=== PATIENT | female | born 1990 | race Hispanic/Latino ===

== ENCOUNTER 2019-08-08 14:57 | Outpatient (CLI) | payer OTHER ==
--- NOTE | 2019-08-08 16:25 | ULT ---
OB ULTRASOUND: 08/08/19 HISTORY: anatomy. FINDINGS: Single live intrauterine gestational seen with measurements corresponding to an estimated gestational age of 20 weeks, 4 days and SANDRINE at 12/22/19. The estimated weight measures 391 grams or 14 oz (36% by Hadlock criteria). measurements are as follows: BPD 4.36 cm 19 weeks, 2 days HC 17.37 cm 20 weeks, 0 days AC 16.25 cm 21 weeks, 3 days FL 3.50 cm 21 weeks, 1 day heart rate measures 138 beats per minute. Placenta is posteriorly located without evidence of placenta previa. HAYLEY measures 16.3 cm. Cervical length measures 3.5 cm. Three vessel cord, cord insertion, kidneys, bladder, spine, four chamber heart, lateral ventric les, cerebellum, spine, lips/nose, upper and lower extremities are visualized. No definite anom alies are seen. IMPRESSION: Single live IUP of 20 weeks, 4 days estimated gestational age and SANDRINE at 12/22/19. POS: RUBIN
== END 2019-08-08 14:58 | disposition home or self-care (01) ==
LOC: BICULT 14:57
PROVIDERS: ATTEND Family Medicine
DX: Z34.82 Encounter for supervision of other normal pregnancy, second trimester (principal); Z3A.20 20 weeks gestation of pregnancy
CPT/HCPCS: 76805

== ENCOUNTER 2019-12-07 08:04 | Outpatient (CLI) | payer OTHER ==
[2019-12-07 18:57] LABS: SARS-CoV-2 MS2 Positive; SARS-CoV-2 N Gene Negative; SARS-CoV-2 S Gene Negative; SARS-CoV-2 by NAA Not Detected (NotDetected); SARS-CoV-2 orf1ab Negative
== END 2019-12-07 08:05 | disposition home or self-care (01) ==
LOC: LABBT 08:04
PROVIDERS: ATTEND Family Medicine
DX: Z20.828 Contact with and (suspected) exposure to other viral communicable diseases (principal)
CPT/HCPCS: 87635; U0003

== ENCOUNTER 2019-12-10 18:00 | Inpatient (IN) | payer MEDICAID, OTHER, SELFPAY ==
[~2019-12-10 18:00] MED LIST: Bupivacaine/Epinephrine 0.25% 30 ML VIAL ONE
[2019-12-10] MEDS ORDERED: Carboprost 250 MCG/ML AMP IM PRN (20:30)
[2019-12-10] MEDS ORDERED: Promethazine HCl 25 MG/ML VIAL IM PRN (20:30)
[2019-12-10] MEDS ORDERED: Methylergonovine 0.2 MG/ML VIAL IM PRN (20:30)
[2019-12-10] MEDS ORDERED: NS / Oxytocin 40 units/1000ml 1,000 ML IV PRN (20:30)
[2019-12-10] MEDS ORDERED: Diphenoxylate HCl/Atropine Tablet PO PRN (20:30)
[2019-12-10] MEDS ORDERED: HYDROcodone/Acetaminophen 5/325 mg Tablet PO PRN (20:30)
[2019-12-10] MEDS ORDERED: Ondansetron PF 4 MG/2 ML Vial IVP PRN (20:30)
[2019-12-10] MEDS ORDERED: Misoprostol 200 MCG TAB PR PRN (20:30)
[2019-12-10] MEDS ORDERED: Butorphanol Tartrate 1 MG/ML VIAL SLOW IVP PRN (20:30)
[2019-12-10] MEDS ORDERED: Ibuprofen 800 MG TAB PO PRN (20:30)
[2019-12-10] MEDS ORDERED: hydrALAZINE 20 MG/ML VIAL SLOW IVP PRN (20:30)
[2019-12-10] MEDS ORDERED: NS w/ Oxytocin 10 units 500 ML IV SCH ×2 (20:30)
[2019-12-10] MEDS ORDERED: Lidocaine 1% (PF) 30 ML VIAL SC PRN (20:30)
[2019-12-10 20:49] VITALS: BMI 30.2
[2019-12-10] MEDS: Lactated Ringer's 1,000 ML IV SCH (21:43)
[2019-12-10 21:50] LABS: Hemoglobin 12.2 g/dL (12.0-16.0); Mean Corpuscular HGB CONC 33.6 g/dL (32.0-36.0); Mean Corpuscular Volume 92.1 fL (78.0-98.0); Mean Platelet Volume 10.4 fL (7.4-10.4); Platelet Count 225 thou/uL (130-400); RBC Distribution Width 12.7 % (11.5-14.5); Red Blood Cell (RBC) Count 3.93 mill/uL (4.20-5.40); White Blood Cell (WBC) Count 8.6 thou/uL (4.8-10.8)
[2019-12-10] MEDS: Misoprostol 100 MCG TAB PO SCH (21:50)
[2019-12-10 22:26] LABS: HBSAg Index 0.15 S/CO (0-0.99); Hep B Surf Ag Non-Reactive S/CO (NonReactive); Syphilis Antibody Nonreactive (Nonreactive); Syphilis Antibody Index 0.08 S/CO (<1.00 Non-Reactive)
[2019-12-11] MEDS: Misoprostol 100 MCG TAB PO SCH ×3 (01:18→15:34)
[2019-12-11] MEDS: Lactated Ringer's 1,000 ML IV SCH ×3 (05:26→11:49)
[2019-12-11] MEDS ORDERED: EPHEDRINE 25 MG/5 ML SYRINGE SLOW IVP PRN (11:46)
[2019-12-11] MEDS ORDERED: diphenhydrAMINE 50 MG/ML VIAL IVP PRN (11:46)
[2019-12-11] MEDS ORDERED: Lactated Ringer's 500 ML IV PRN (11:46)
[2019-12-11] MEDS ORDERED: Acetaminophen 325 MG TAB PO PRN (11:46)
[2019-12-11] MEDS ORDERED: Promethazine HCl 25 MG/ML VIAL IM PRN ×2 (11:46→15:54)
[2019-12-11] MEDS ORDERED: Ondansetron PF 4 MG/2 ML Vial IVP PRN ×2 (11:46→15:54)
[2019-12-11] MEDS ORDERED: Naloxone HCl 0.4 mg/ml Vial IVP PRN ×2 (11:46)
[2019-12-11] MEDS ORDERED: Fentanyl 4 mcg/Bupivacaine 0.1% Cassette 100 ML EPIDURAL SCH (12:00)
[2019-12-11] MEDS ORDERED: Communication Order-Pharmacy FS SCH (12:00)
[2019-12-11] MEDS ORDERED: NS / Oxytocin 40 units/1000ml 1,000 ML ONE (13:15)
[2019-12-11] MEDS ORDERED: Lidocaine 1% (PF) 30 ML VIAL ONE (13:15)
[2019-12-11] MEDS ORDERED: Fentanyl 4 mcg/Bup 0.1% Cadd 100 ML ONE (14:53)
[2019-12-11] MEDS ORDERED: diphenhydrAMINE 25 MG CAP PO PRN (15:54)
[2019-12-11] MEDS ORDERED: NS / Oxytocin 40 units/1000ml 1,000 ML IV SCH (15:54)
[2019-12-11] MEDS ORDERED: Benzocaine-Menthol 82.5 ML CAN TOP PRN (15:54)
[2019-12-11] MEDS ORDERED: Adacel (T-DAP) 0.5 ML SYRINGE IM ONE (15:54)
[2019-12-11] MEDS ORDERED: HYDROcodone/Acetaminophen 5/325 mg Tablet PO PRN ×2 (15:54)
[2019-12-11] MEDS ORDERED: hydrALAZINE 20 MG/ML VIAL SLOW IVP PRN (15:54)
[2019-12-11] MEDS ORDERED: Milk Of Magnesia 30 ML UDCUP PO PRN (15:54)
[2019-12-11] MEDS ORDERED: Bisacodyl 10 MG SUPP PR PRN (15:54)
[2019-12-11] MEDS ORDERED: Lanolin Ointment 7 GM TUBE TOP PRN (15:54)
[2019-12-11] MEDS: Ferrous Sulfate 325 MG TAB PO SCH (17:45)
[2019-12-11] MEDS: Docusate Calcium (SURFAK) 240 MG CAP PO SCH (22:00)
[2019-12-11] MEDS: Ibuprofen 800 MG TAB PO SCH (22:00)
[2019-12-12] MEDS: Ibuprofen 800 MG TAB PO SCH ×2 (05:20→13:58)
[2019-12-12] MEDS: Docusate Calcium (SURFAK) 240 MG CAP PO SCH (08:30)
[2019-12-12] MEDS: Ferrous Sulfate 325 MG TAB PO SCH ×2 (08:39→16:25)
[2019-12-12] MEDS ORDERED: Prenatal Vitamin 1 TAB PO SCH (09:00)
[2019-12-12 11:54] VITALS: BP 121/68; TEMP 98.8
== END 2019-12-12 19:45 | disposition home or self-care (01) | DRG 807 ==
LOC: L&D 19:56 → 3SW 12-11 16:48
PROVIDERS: ADMIT Family Medicine; ATTEND Family Medicine
PROC: 10E0XZZ Delivery of Products of Conception, External Approach (ICD-10-PCS; principal; 2019-12-11)
PROC: 10907ZC Drainage of Amniotic Fluid, Therapeutic from Products of Conception, Via Natural or Artificial Opening (ICD-10-PCS; 2019-12-11)
PROC: 3E033VJ Introduction of Other Hormone into Peripheral Vein, Percutaneous Approach (ICD-10-PCS; 2019-12-11)
PROC: 0UQMXZZ Repair Vulva, External Approach (ICD-10-PCS; 2019-12-11)
DX: O24.420 Gestational diabetes mellitus in childbirth, diet controlled (principal); Z37.0 Single live birth; Z3A.39 39 weeks gestation of pregnancy; O71.82 Other specified trauma to perineum and vulva
CPT/HCPCS: 36415; 36416; 85027; 86780; 86850; 86870; 86900; 86901; 87340; J2001; J2590